=== PATIENT | male | born 1990 | race Caucasian/White ===

== ENCOUNTER 2024-07-29 21:01 | Observation (INO) | payer BC ==
[~2024-07-29] VITALS: Ht 182.9 cm; Wt 139.4 kg
[2024-07-29 21:43] LABS: BASOPHILS 0.3 % (0.2-1.2); EOSINOPHILS 1.5 % (0.8-7.0); HEMATOCRIT 44.7 % (40.1-51.0); HEMOGLOBIN 15.2 g/dL (13.7-17.5); LYMPHOCYTES 37.1 % (21.8-53.1); MCH 30.3 PG (25.7-32.2); NEUTROPHILS 52.7 % (34.0-67.9); PLATELET COUNT 201 K/uL (163-337); RBC 5.02 M/uL (4.63-6.08)
[2024-07-29] MEDS ORDERED: ondansetron HCL 4 MG/2 ML VIAL IV ONE (21:45)
[2024-07-29] MEDS ORDERED: KETOROLAC TROMETHAMINE 30 MG/ML VIAL IV ONE (21:45)
[2024-07-29 21:59] LABS: ALBUMIN 4.3 g/dL (3.4-5.0); ALBUMIN/GLOBULIN RATIO 1.23 (1.1-2.4); ANION GAP 13.8 (7-21); BILIRUBIN, TOTAL 0.3 mg/dL (0.2-1.0); BUN/CREATININE RATIO 13.6 (6.0-28.6); CALCIUM 8.8 mg/dL (8.5-10.1); CREATININE, SERUM 1.69 mg/dL (0.70-1.30); POTASSIUM 3.8 mmol/L (3.5-5.1); PROTEIN, TOTAL 7.8 g/dL (6.4-8.2)
[2024-07-29] MEDS ORDERED: MORPHINE SULFATE 4 MG/ML VIAL IV ONE (22:00)
[2024-07-29] MEDS ORDERED: FAMOTIDINE 20 MG/ 2 ML VIAL IV ONE (22:00)
[2024-07-29] MEDS ORDERED: LACTATED RINGER'S 1,000 ML IV ONE (22:00)
[2024-07-29] MEDS ORDERED: HYDROmorphone HCL 1 MG/ML SYR IV PRN ×2 (22:30→23:15)
[2024-07-29 22:44] LABS: BILIRUBIN, URINE NEGATIVE (negative); BLOOD/HGB, URINE NEGATIVE (Negative); KETONE, URINE TRACE (Negative); LEUK ESTERASE, URINE NEGATIVE (negative); NITRITE, URINE NEGATIVE (negative)
[2024-07-29] MEDS ORDERED: ondansetron HCL 4 MG/2 ML VIAL IV PRN (23:15)
[2024-07-29] MEDS ORDERED: LACTATED RINGER'S 1,000 ML IV SCH (23:15)
[2024-07-29] MEDS ORDERED: CEFAZOLIN SODIUM 1 GM/10 ML SYR IV ONE (23:15)
[2024-07-29] MEDS ORDERED: ACETAMINOPHEN 325 MG TAB PO PRN (23:15)
[2024-07-29 23:32] VITALS: BP 142/86
--- NOTE | 2024-07-29 23:40 | NUR ---
PT TO FLOOR WITH ED RN VIA WC. ALERT AND ORIENTED. ABLE TO TRANSFER SELF TO BED. BEDSIDE REPORT RECEIVED. WEIGHT AND VS OBTAINED. PT REPORTS ABD PAIN TOLERABLE 5/10. NO COMPLAINTS OF NAUSEA. DRUG ABUSE RESISTANCE EDUCATION OFFICER IN ROOM FOR ADMISSION.
[2024-07-30] VITALS (10 sets, daily range): BP systolic 120–144; BP diastolic 62–93
--- NOTE | 2024-07-30 00:22 | NUR ---
ADMISSION COMPLETE. PT DENIES PAIN OR NAUSEA AT THIS TIME. IVF INFUSING PER ORDER. DISCUSSED NPO STATUS. PT VERBALIZES UNDERSTANDING. ORAL CARE SUPPLIES PROVIDED. GALLBLADDER BOOKLET PROVIDED. TO STAY THE NIGHT. LINENS PROVIDED. PT ORIENTED TO ROOM AND NURSE CALL LIGHT. PT DENIES FURTHER QUESTIONS OR CONCERNS. CALL LIGHT IN REACH.
--- NOTE | 2024-07-30 02:14 | NUR ---
PT RESTING WITH EYES CLOSED. AWAKENS EASILY. DENIES PAIN OR NAUSEA. SPOT CHECK SpO2 96% ON RA. HR 60'S. RESTING ON COUCH. NO NEEDS. CALL LIGHT IN REACH.
--- NOTE | 2024-07-30 03:46 | NUR ---
PT IN BED RESTING WITH EYES CLOSED. RESPIRATIONS EVEN. CALL LIGHT IN REACH.
[2024-07-30 05:21] LABS: BASOPHILS 0.3 % (0.2-1.2); EOSINOPHILS 0.7 % (0.8-7.0); HEMATOCRIT 40.6 % (40.1-51.0); HEMOGLOBIN 13.6 g/dL (13.7-17.5); LYMPHOCYTES 21.4 % (21.8-53.1); MCH 30.4 PG (25.7-32.2); MCHC 33.5 g/dL (32.3-36.5); MCV 90.6 fL (79.0-92.2); MONOCYTES 8.6 % (5.3-12.2); NEUTROPHILS 68.6 % (34.0-67.9); PLATELET COUNT 152 K/uL (163-337); RBC 4.48 M/uL (4.63-6.08)
--- NOTE | 2024-07-30 05:35 | NUR ---
LAB IN FOR MORNING DRAW. PT UP TO BR TO VOID 350 ML CONCENTRATED URINE. BACK TO BED, YVES WELL. VS AND I&O OBTAINED, WNL. PT DENIES PAIN OR NAUSEA. PT REMAINS NPO. IVF INFUSING WNL. NO FURTHER NEEDS. CALL LIGHT IN REACH.
[2024-07-30 05:37] LABS: ALBUMIN 3.4 g/dL (3.4-5.0); ALBUMIN/GLOBULIN RATIO 1.1 (1.1-2.4); ANION GAP 11.3 (7-21); BILIRUBIN, TOTAL 0.3 mg/dL (0.2-1.0); BUN/CREATININE RATIO 15.58 (6.0-28.6); CALCIUM 8.3 mg/dL (8.5-10.1); CREATININE, SERUM 1.54 mg/dL (0.70-1.30); POTASSIUM 4.3 mmol/L (3.5-5.1); PROTEIN, TOTAL 6.5 g/dL (6.4-8.2)
[2024-07-30] MEDS ORDERED: CEFAZOLIN SODIUM 2 GM/20 ML SYR IV SCH (06:00)
[2024-07-30] MEDS ORDERED: CEFAZOLIN SODIUM 1 GM/10 ML SYR IV SCH (06:00)
[2024-07-30] MEDS ORDERED: LORazepam 2 MG/ML VIAL IV PRN ×3 (06:00→10:30)
--- NOTE | 2024-07-30 06:14 | NUR ---
PT TO NURSES STATION, REPORTS PT HAVING EXTREME ANXIETY AFTER LAB DRAW. MD NOTIFIED. NEW TELEPHONE ORDERS RECEIVED VERIFIED WITH READBACK METHOD. IN TO ADMIN PRN. EDUCATION PROVIDED. ORAL CARE SUPPLIES PROVIDED. NO FURTHER NEEDS.
--- NOTE | 2024-07-30 07:17 | NUR ---
REPORT FROM YVONNE SÁNCHEZ.
--- NOTE | 2024-07-30 08:06 | NUR ---
MED REC COMPLETE
--- NOTE | 2024-07-30 08:29 | NUR ---
MORNING ASSESSMENT IS COMPLETE. PATIENT IS ALERT AND ORIENTED, RA, ACTIVE BOWEL TONES. PATIENT REPORTS NO PAIN, NO NAUSEA. IVF INFUSING TO LEFT ARM. SCD'S ARE ON. PATIENT DENIES ANY NEEDS AT THIS TIME.
--- NOTE | 2024-07-30 08:42 | NUR ---
ALERT AND ORIENTED IN BED. DEMOGRAPHICS CONFIRMED. LIVES IN HOUSE. DRIVES AT BASELINE, SPOUSE CAN ASSIST WITH TRANSPORTATION. HAS CRUTCHES, NO OTHER DME. HE DOES NOT CURRENTLY USE THE CRUTCHES HE HAS AVAILABLE. DENIES ANY DIFFICULTY PAYING UTILTIES OR FOR FOOD OR MEDICATIONS. PLAN FOR DC TO HOME WHEN MEDICALLY STABLE. NO CM NEEDS AT THIS TIME.
[2024-07-30] MEDS ORDERED: FAMOTIDINE 20 MG/ 2 ML VIAL IV SCH ×3 (09:00→10:30)
--- NOTE | 2024-07-30 10:00 | NUR ---
PATIENT IS RESTING IN BED, DENIES NEEDS.
[2024-07-30] MEDS ORDERED: MORPHINE SULFATE 10 MG/ML VIAL IV PRN ×2 (10:15→10:30)
[2024-07-30] MEDS ORDERED: KETOROLAC TROMETHAMINE 30 MG/ML VIAL IV PRN ×2 (10:15→10:30)
[2024-07-30] MEDS ORDERED: ondansetron HCL 4 MG/2 ML VIAL IV PRN ×3 (10:15→16:45)
[2024-07-30] MEDS ORDERED: LACTATED RINGER'S 1,000 ML IV SCH ×2 (10:15→10:30)
--- NOTE | 2024-07-30 11:30 | NUR ---
SPIRITUAL CARE IN TO SEE PATIENT.
[2024-07-30] MEDS ORDERED: SODIUM CHLORIDE 0.9% 40 ML IV ONE (12:13)
[2024-07-30] MEDS ORDERED: iopamidoL 30 ML VIAL ONE (12:13)
--- NOTE | 2024-07-30 12:33 | NUR ---
PATIENT ALERT AND ORIENTED SITTING UP IN BED. CALL LIGHT WITHIN REACH. PATIENT DENIES ANY NEEDS OR CONCERNS AT THIS TIME.
[2024-07-30] MEDS ORDERED: MIDAZOLAM HCL 2 MG/2 ML VIAL ONE (12:59)
[2024-07-30] MEDS ORDERED: fentaNYL citrate 100 MCG/2 ML VIAL ONE (12:59)
--- NOTE | 2024-07-30 13:00 | NUR ---
PATIENT DID A SURGICAL WIPE DOWN. NEW GOWN AND SOCKS SCDS ON. NEW BED LINENS. PATIENT ALSO BRUSHED HIS TEETH AND WASHED HIS FACE.
--- NOTE | 2024-07-30 13:18 | NUR ---
PATIENT HAD SURGICAL WIPE DOWN. LR ON STRAIGHT TUBING, 1400 ANCEF IS TAPED TO IVF BAG. PATIENT GIVEN 1MG OF IV ATIVAN FOR ANXIETY. SPOUSE AND MOM ARE IN ROOM WITH PATIENT.
--- NOTE | 2024-07-30 13:36 | NUR ---
UR CLINICAL REVIEW: [facility] ENCOUNTER INACTIVE. PER KINESIOTHERAPIST MEETS OBS FOR ACUTE CALCULOUS CHOLECYSTITIS WITH NEED FOR SURGICAL PROCEDURE [facility]AN PPO OBS 07/29/24 @ 2369 ORDER MATCHES REG NO AUTH REQUIRED FOR OBS VISIT PER GUIDELINES DISCHARGE TO HOME POST SURGICAL PROCEDURE 07/31/24
[2024-07-30] MEDS ORDERED: ondansetron HCL 4 MG/2 ML VIAL ONE (14:00)
[2024-07-30] MEDS ORDERED: propofoL 200 MG/20 ML VIAL ONE (14:00)
[2024-07-30] MEDS ORDERED: ROCURONIUM BROMIDE 50 MG/5 ML SYR ONE (14:00)
[2024-07-30] MEDS ORDERED: LIDOCAINE HCL 2% 5 ML SDV ONE (14:00)
[2024-07-30] MEDS ORDERED: SUCCINYLCHOLINE IN 0.9% NACL 200 MG/10 ML SYRINGE ONE (14:00)
[2024-07-30] MEDS ORDERED: ACETAMINOPHEN 1,000 MG/100 ML VIAL ONE (14:00)
[2024-07-30] MEDS ORDERED: KETOROLAC TROMETHAMINE 30 MG/ML VIAL ONE (14:00)
--- NOTE | 2024-07-30 14:04 | NUR ---
PATIENT TO SURGERY WITH GONZALO CERDA.
--- NOTE | 2024-07-30 14:58 | NUR ---
REPORT GIVEN TO GONZALO CONNOLLY.
[2024-07-30] MEDS ORDERED: HYDROmorphone HCL 2 MG/ML VIAL ONE (15:06)
[2024-07-30] MEDS ORDERED: SEVOFLURANE 250 ML BTL INH ONE (15:18)
[2024-07-30] MEDS ORDERED: SUGAMMADEX SODIUM 200 MG/2 ML ML ONE (15:59)
[2024-07-30] MEDS ORDERED: MEPERIDINE HCL 25 MG/1 ML VIAL IV PRN (16:45)
[2024-07-30] MEDS ORDERED: NALOXONE HCL 0.4 MG SYR IV PRN (16:45)
[2024-07-30] MEDS ORDERED: PERCOCET 7.5-31 EACH PO (16:45)
[2024-07-30] MEDS ORDERED: TYLENOL EXTRA500 MG PO (16:45)
[2024-07-30] MEDS ORDERED: fentaNYL citrate 50 MCG/ML SDV IV PRN (16:45)
[2024-07-30] MEDS ORDERED: HYDROmorphone HCL 1 MG/ML SYR IV PRN (16:45)
[2024-07-30] MEDS ORDERED: MOTRIN IB200 MG PO (16:45)
[2024-07-30] MEDS ORDERED: MIDAZOLAM HCL 2 MG/2 ML VIAL IV PRN (16:45)
--- NOTE | 2024-07-30 17:16 | NUR ---
07/30/246 Shikha Sheldon PATIENT WAKES TO MY VOICE AND LIGHT TOUCH. ORAL AIRWAY IS REMOVED. PATIENT IS PULLING AT THE OXYGEN MASK. OXYGEN IS DISCONTINUED AT THIS TIME. PATIENT REPORTS "A LITTLE BIT" OF PAIN. PATIENT RETURNS TO RESTING QUIETLY, WITH HIS EYES CLOSED WHEN UNSTIMULATED.
[2024-07-30] MEDS ORDERED: OXYCODONE/APAP 7.5/325 TAB PO PRN (17:45)
[2024-07-30] MEDS ORDERED: ACETAMINOPHEN 500 MG TAB PO PRN (17:45)
[2024-07-30] MEDS ORDERED: IBUPROFEN 600 MG TAB PO PRN (17:45)
--- NOTE | 2024-07-30 17:58 | NUR ---
PT RECIEVED FROM FRIEND OF THE COURT. PT BROUGHT VIA BED, AND TRANSPOSRTED ON 1L NC. PT IS VERY DROUSY BUT RESPONDS TO VERBAL STIMULI, PT HAS NO PAIN OR NAUSEA AT THIS TIME WITH SPOUSE CURRENTLY IN ROOM. PT VITALS STABLE AT THIS TIME WITH CPOX IN PLACE AND 1L NC IN PLACE WELL, PT HAS 4 LAP SITES AT THIS TIME WITH SCANT DRAINAGE AROUNDS SITES. PT HAS CALL LIGHT IN REACH AT THIS TIME AND HAS NO CURRENT CONCERNS.
--- NOTE | 2024-07-30 19:35 | NUR ---
REPORT RECEIVED FROM DAY SHIFT RN. PT LYING IN BED ALERT AND ORIENTED, DROWSY. SpO2 94% ON RA. HR 70'S. DENIES NEEDS. FAMILY AT BEDSIDE. WHITE BOARD UPDATED. CALL LIGHT IN REACH.
--- NOTE | 2024-07-30 20:16 | NUR ---
POST OP VS OBTAINED, WNL. PT UP TO AMB X 3 LAPS AROUND WITH SBA. YVES WELL. BACK TO RECLINER. JELLO PROVIDED. FAMILY IN ROOM. NO FURTHER NEEDS.
--- NOTE | 2024-07-30 21:10 | NUR ---
CALL LIGHT ANSWERED, pt RATES PAIN 6/10 IN ABDOMEN. PO PAIN MEDICATION ADMINISTERED, CRACKERS PROVIDED. VSS. pt SITTING UP, ICE WATER REFILLED. IN ROOM. URINAL EMPTIED. CALL LIGHT IN REACH.
--- NOTE | 2024-07-30 21:33 | NUR ---
EVENING ASSESSMENT COMPLETE. SCHEDULED MEDS AMDIN PER EMAR. PT REPORTS PAIN IMPROVING AFTER PRN ADMIN. DENIES NAUSEA. BOWEL TONES ACTIVE. ABD SOFT. LAP SITES X 4 WITH STERI STRIPS INTACT. SMALL AMOUNT RED DRAINAGE NOTED. PT REPORTS FLATUS. CPOX IN PLACE. TO STAY THE NIGHT. PT DENIES QUESTIONS OR CONCERNS. CALL LIGHT IN REACH.
--- NOTE | 2024-07-30 23:24 | NUR ---
PT RESTING IN BED WITH EYES CLOSED. RESPIRATIONS EVEN. SpO2 94% ON RA.
--- NOTE | 2024-07-31 02:13 | NUR ---
PT AWAKE IN BED. REPORTS ABD PAIN 05/23. PRN FOR PAIN ADMIN PER EMAR. UP TO BR WITH MINIMAL ASSIST TO VOID. BACK TO BED, YVES WELL. VS AND I&O OBTAINED, WNL. PT DENIES NAUSEA. ABD ASSESSMENT UNCHANGED. PT DENIES FURTHER NEEDS. CALL LIGHT IN REACH.
[2024-07-31 02:25] VITALS: BP 136/72
[2024-07-31 02:27] VITALS: BP 136/72
--- NOTE | 2024-07-31 03:42 | NUR ---
PT RESTING IN BED WITH EYES CLOSED. RESPIRATIONS EVEN. CALL LIGHT IN REACH.
[2024-07-31 06:16] VITALS: BP 129/80
--- NOTE | 2024-07-31 06:30 | NUR ---
PT AWAKE IN BED. VS AND I&O OBTAINED. IV IN LEFT UPPER ARM NOT PATENT. IV ABX DUE. NOTIFIED. NEW TELEPHONE ORDERS RECEIVED VERIFIED WITH READBACK METHOD. IV DC'D WNL. TIP INTACT. WARM COMPRESS PROVIDED WELL ELEVATION. OK'D TO LEAVE IV OUT AND DC ABX. PT REPORTS ABD PAIN 05/23. PRN FOR PAIN ADMIN WITH CRACKERS. PT DENIES FURTHER NEEDS. ALL LIGHT IN REACH.
--- NOTE | 2024-07-31 07:20 | NUR ---
RECEIVED REPORT FROM ALEXIS SÁNCHEZ. PATIENT AMBULATING IN ROOM, AT BEDSIDE. PATIENT STATES NO CURRENT NEEDS. CALL LIGHT AT REACH.
--- NOTE | 2024-07-31 07:42 | NUR ---
PATIENT LAYING IN BED. PATIENT GOWN WAS CHANGED. PATIENTS CALL LIGHT IN REACH AND NO FURTHER NEEDS AT THIS TIME.
--- NOTE | 2024-07-31 08:21 | NUR ---
PATIENT SITTING UP IN BED EATING BREAKFAST, AT BEDSIDE. DC PACKET AND EDUCATION GIVEN, PATIENT AND VERBALIZED UNDERSTANDING AND STATE ALL QUESTIONS HAVE BEEN ANSWERED. PATIENT STATES NO NEEDS AT THIS TIME, CALL LIGHT AT REACH.
--- NOTE | 2024-07-31 08:50 | NUR ---
PT DRESSES SELF IN OWN CLOTHES, PT AT THE BEDSIDE. PT TOLERATES REGULAR DIET BREAKFAST W/O DIFFICULTY, AMBULATES AROUND UNIT INDEPENDENTLY. VSS. PT AMBULATES TO FRONT OF BUILDING.
[2024-07-31 08:51] VITALS: BP 139/78
[2024-07-31] MEDS ORDERED: FAMOTIDINE 20 MG TAB PO SCH (09:00)
--- NOTE | 2024-08-01 11:32 | HP ---
[facility] [address] [place], [place] [address] Signed ADMISSION DATE: 07/30/2024 REASON FOR ADMISSION: Symptomatic gallstones. HISTORY OF PRESENT ILLNESS: This 34-year-old white man presented to the emergency room at approximately 10 o'clock last night and evaluated thoroughly by Dr. Balbuena with complaints of mid epigastric and right upper abdominal pain radiating to the subscapular area. This occurred approximately an hour and a half prior to his evaluation by Dr. Balbuena. He had no fever, chills, but did have one episode of vomiting. The patient was identified as having gallstones on a gallbladder ultrasound in the past. Indeed, three years ago in emergency room evaluation in [place], [place]. The patient did some health improvements including dietary modification and so forth and has not generally been bothered by his documented gallstones but in recent times has had a few episodes of right subcostal and some subscapular pain. The patient admits that he has a "phobia" regarding medical care and that was a major reason he did not pursue further efforts at cholecystectomy. Evaluation in the emergency room included a chest x-ray, which was normal and a gallbladder ultrasound showing gallstones without pericholecystic fluid. Laboratory studies were essentially normal. White count was 11.71. Liver enzymes were normal including bilirubin was 0.3. Urinalysis was normal as well. He has been admitted for further evaluation and care on the basis of acute cholecystitis. He has been initiated with Zofran antibiotic initially and Ancef currently. The patient did not have much improvement significantly with morphine administered initially ultimately given Dilaudid with some benefit. The patient did have some bit of an anxiety episode early in the morning for which I treated with Ativan prior to seeing him, which did calm him down quite a bit. At present, he is feeling reasonably comfortable and he is accompanied by his . PAST MEDICAL HISTORY: Remarkable only for wisdom tooth extraction. He takes no medications chronically. His primary care provider is Ronnie Oleary. He currently does not have as much pain as when he first presented and has no nausea. Electronically Signed By: MIKHAIL BARLOW MD 08/01/24 1132 PATIENT NAME: BAILEY SAM HISTORY AND PHYSICAL DATE OF : 88 REPORT #: [id number] PHYSICIAN: MIKHAIL BARLOW MD PCP: RONNIE OLEARY PAC REPORT IS CONFIDENTIAL AND NOT TO BE RELEASED WITHOUT AUTHORIZATION [facility] [address] [place], [place] [address] Signed REVIEW OF SYSTEMS: He denies any shortness of breath or chest pain. He has had no dysphagia, dysuria. Denies any hematemesis or blood per rectum. SOCIAL HISTORY: The patient is . He is accompanied by his at this time. He has two children, 11 and 9 years of age. 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 They lives in [place], [place]. PHYSICAL EXAMINATION: GENERAL: Large white man who does not look systemically toxic at this time. VITAL SIGNS: On presentation, pulse of 73, blood pressure 161/86, temperature 98.3. NECK: Trachea is midline. He has a pérez. CHEST: Clear. HEART: Regular without murmur. ABDOMEN: Somewhat obese but soft. Palpation in the right subcostal and epigastric area reveals mild tenderness, but no mass. EXTREMITIES: Show no clubbing, cyanosis, or edema. LABORATORY DATA: Lab studies were as previously noted. Normal electrolytes except for creatinine elevated at 1.69. Review of his ultrasound shows at least one large gallstone with shadowing. I do not identify pericholecystic fluid. Gallbladder is somewhat distended. ASSESSMENT: The patient presented with acute calculous cholecystitis and his symptoms are improved with IV antibiotics, parental pain medication and bowel rest. I discussed with him and his the pathophysiology of biliary disease and recommendation of treatment to include cholecystectomy preferred by laparoscopic approach. The risk of bleeding, infection, bile duct injury, need for open surgery and other unforeseen complications was reviewed with him in detail. He understands. He would certainly appreciate proceeding with this today. We are mindful of his medical treatment, anxiety issues and Ativan is ordered and has been effective so far already. Mikhail Barlow MD JM/MODL Electronically Signed By: MIKHAIL BARLOW MD 08/01/24 1132 PATIENT NAME: BAILEY SAM HISTORY AND PHYSICAL DATE OF : [birth year] REPORT #: [id number] PHYSICIAN: MIKHAIL BARLOW MD PCP: RONNIE OLEARY PAC REPORT IS CONFIDENTIAL AND NOT TO BE RELEASED WITHOUT AUTHORIZATION [address] [address] Signed /[id number] cc: Dr. Mark Oleary PA-C Copies: ~ Electronically Signed By: MIKHAIL BARLOW MD 08/01/24 1132 PATIENT NAME: BAILEY SAM HISTORY AND PHYSICAL DATE OF : [birth year] REPORT #: [id number] PHYSICIAN: MIKHAIL BARLOW MD PCP: RONNIE OLEARY PAC REPORT IS CONFIDENTIAL AND NOT TO BE RELEASED WITHOUT AUTHORIZATION
--- NOTE | 2024-08-01 11:32 | OR ---
[facility] [address] [place], [place] [address] Signed DATE OF OPERATION: 07/30/2024 SURGEON: Mikhail Barlow MD PREOPERATIVE DIAGNOSES: 1. Acute calculous cholecystitis. 2. Obesity. POSTOPERATIVE DIAGNOSES: 1. Acute calculous cholecystitis. 2. Obesity. PROCEDURE: 1. Laparoscopic cholecystectomy with intraoperative cholangiogram (difficult). 2. Surgeon-directed fluoroscopy. ANESTHESIA: General endotracheal. Maurice Seamons, COATINGS INSPECTOR and local 10 mL of 0.25% Marcaine with epinephrine. INDICATION: This 34-year-old white man is long known to have gallstones undergoing gallbladder ultrasound through emergency room evaluation in [place], [place] more than three years ago. In general terms, he has had minimal symptoms over time in the past few weeks, increasing symptoms of right upper abdominal and epigastric and right subscapular pain have been noted. Yesterday, he had a particularly severe episode and presented to the emergency room was evaluated by Dr. Ghazala Rivera and found to have findings consistent with acute cholecystitis. A gallbladder ultrasound was performed which showed multiple gallstones, but not gallbladder thickening per se. Given his tenderness. He was considered to have acute calculous cholecystitis and he is admitted for further evaluation and care. He has been treated with antibiotics including Ancef and fluid resuscitation. He is now to undergo cholecystectomy preferred by laparoscopic approach. Risks of bleeding, infection, bile duct injury, need for open surgery and other unforeseen complications were reviewed in detail. He understands and wished to proceed. FINDINGS: The gallbladder was definitely edematous and inflamed and distended and firm. More so than I expected actually. The gallbladder itself had multiple large gallstones, some of them 2 cm in size. Intraoperative cholangiogram was normal. The liver was normal as were the surrounding tissues otherwise. He tolerated the procedure well. It was Electronically Signed By: MIKHAIL BARLOW MD 08/01/24 1132 PATIENT NAME: BAILEY SAM OPERATIVE REPORT DATE OF : [birth year] REPORT #: [id number] PHYSICIAN: MIKHAIL BARLOW MD PCP: RONNIE OLEARY PAC REPORT IS CONFIDENTIAL AND NOT TO BE RELEASED WITHOUT AUTHORIZATION [facility] [address] [place], [place] [address] Signed challenging on the basis of his edema and obesity, but it was accomplished safely. To my knowledge, all stones have been removed, though there was spillage of stones at the very end of the cholecystectomy requiring them to be gathered up manually. DESCRIPTION OF PROCEDURE: The patient was brought to the operating room, given a general endotracheal anesthetic. Sequential compression device stockings were placed. Preoperative antibiotic Ancef had been given. The abdomen was prepared with a chlorhexidine solution and draped sterilely. Notably, he did have a rash in the inferior abdominal wall pannus and the circumumbilical low-grade rash is the same type. It was not pustular or purulent. May represent psoriasis versus a tinea type infection. After satisfactory abdominal preparation with Hibiclens and sterile draping, an infraumbilical incision was made outside the area of inflammatory process. Using an open Rosita cannula technique, the abdomen was entered and pneumoperitoneum achieved to a level of 14 mmHg of carbon dioxide gas. Intra-abdominal inspection showed no sign of ascites or carcinomatosis. The fundus of the gallbladder was barely visible, but did show edema. The liver appeared reasonably normal. Three additional trocars were placed in usual configuration in the subxiphoid, right midclavicular, and right anterior axillary line. Gallbladder was elevated cephalad and marked edema and distention of the gallbladder noted. It was quite inflamed. The infundibulum was grasped and retracted laterally and using blunt electrocautery dissection, the triangle of Calot was dissected free. A lymph node was noted in the infundibulum, which was benign-appearing. With various maneuvers and sequential elevation of the gallbladder, the triangle of Calot was more fully dissected free ultimately identifying the cystic duct and cystic artery, which parallel to each other. With the critical view of safety, the cystic duct was more fully dissected free and from the artery. Ultimately, the artery was doubly clipped and divided. The critical view of safety assured that appropriate biliary structure was identified and the clip was applied across the gallbladder cystic duct junction. A transverse choledochotomy was made in the cystic duct and using an Blackmon type cholangiocatheter intraoperative cholangiography was then undertaken. Free flow of contrast was noted into the biliary tree under surgeon directed fluoroscopy. There was no sign of filling defect. The cystic duct was not excessively long. It was noted. Various angles were used to more fully define that, but ultimately it was clear that the cystic duct was not as lengthy as usual, but not directly opposed to the common hepatic duct itself. The catheter was removed. The cystic duct was triply clipped and divided and the gallbladder was then dissected free in a retrograde fashion using electrocautery. The gallbladder was partly intrahepatic in the apex and entry into the gallbladder allowed for spillage of some stones and debris. The gallbladder was ultimately excised completely, placed in an endobag as were some spilled stones and extracted through the infraumbilical port site. Reinspection of subhepatic Electronically Signed By: MIKHAIL BARLOW MD 08/01/24 1132 PATIENT NAME: BAILEY SAM OPERATIVE REPORT DATE OF : [birth year] REPORT #: [id number] PHYSICIAN: MIKHAIL BARLOW MD PCP: RONNIE OLEARY PAC REPORT IS CONFIDENTIAL AND NOT TO BE RELEASED WITHOUT AUTHORIZATION [facility] [address] [place], [place] [address] Signed space showed several small gallstones, all of which were gathered. Irrigation was undertaken showing no sign of bile leak, bleeding or other problem. Once it was clear, there were no retained stones. No bile leak or bleeding. The subhepatic space was insufflated with powdered hemostatic agent. The trocars were removed under direct visualization showing no sign of bleeding. The fascial incision was reapproximated with interrupted 0 Vicryl suture. All wounds were copiously irrigated with saline solution and 10 mL of 0.25% Marcaine with epinephrine was injected locally. The skin was closed with interrupted 3-0 Vicryl. Steri-Strips were applied. Inspection of the gallbladder on the back table showed no sign of neoplasm of mucosa, but multiple large multifaceted gallstones. The patient was taken to recovery room after extubation in good condition having suffered no complications. Sponge, needle, and instrument counts reported as correct x3. MD GEOVANNA Epstein/RICARDO /[id number] cc: Ronnie Oleary PA-C Ghazala Rivera MD [facility] Copies: ~ Electronically Signed By: MIKHAIL BARLOW MD 08/01/24 1132 PATIENT NAME: BAILEY SAM OPERATIVE REPORT DATE OF : [birth year] REPORT #: [id number] PHYSICIAN: MIKHAIL BARLOW MD PCP: RONNIE OLEARY PAC REPORT IS CONFIDENTIAL AND NOT TO BE RELEASED WITHOUT AUTHORIZATION
--- NOTE | 2024-08-02 10:44 | PATH ---
[facility] [place] [facility] [address] [facility] [place], [place] [address] Signed SPECIMEN(S): A GALLBLADDER AND GALLSTONES SPECIMEN SOURCE: A. GALLBLADDER AND GALLSTONES CLINICAL HISTORY: Cholecystitis, cholelithiasis FINAL PATHOLOGIC DIAGNOSIS: Gallbladder, cholecystectomy - Morphologic features of chronic cholecystitis with cholelithiasis. NA MICROSCOPIC EXAMINATION: Histologic sections of all submitted blocks are examined by light microscopy. These findings, together with the gross examination, support the pathologic diagnosis. GROSS DESCRIPTION: The specimen, labeled and designated "Rudder, gallbladder and gallstones," is received in formalin and consists of Specimen: Previously opened gallbladder. Dimensions: 7.8 x 3.2 x 2.0 cm. Serosa: Stigler-morales to violaceous and smooth. Cystic Duct: Unobstructed, margin inked black and shaved. Calculi: Multiple yellow-brown multifaceted and fragmented calculi (0.1-1.7 cm in greatest dimension, and 6.5 x 5.0 x 1.7 cm in aggregate). Mucosa: Red-brown to green-morales and velvety. Wall thickness: 0.1-0.5 cm. Lymph node: One red-brown possible pericystic lymph node (0.9 x 0.8 x 0.5 cm). The tissue is inked blue, and the specimen is submitted in toto.. Additional: None. [employer]der [employer]er sections are submitted in (A1). VB (under the direct supervision of a pathologist) The Gross Description was prepared using a voice recognition system. The report was reviewed for accuracy; however, sound-alike word errors, addition and/or deletions may occur. If there is any question about this report, please contact Client Services. ADDITIONAL NOTES: PATIENT NAME: BAILEY SAM PATHOLOGY DATE OF : [birth year] REPORT #: [id number] PHYSICIAN: ETHEL GALVIN PCP: RONNIE OLEARY PAC REPORT IS CONFIDENTIAL AND NOT TO BE RELEASED WITHOUT AUTHORIZATION [facility] [place] [facility] [address] [place], [place] [address] Signed Immunohistochemical and/or in situ hybridization studies if performed in this case included appropriate positive controls that reacted as expected. This test was developed and its performance characteristics determined by [facility]. It has not been cleared or approved by the U.S. Food and Drug Administration. The FDA has determined that such clearance or approval is not necessary. This test is used for clinical purposes. It should not be regarded as investigational or for research. [facility] is certified under the Clinical Laboratory Improvement Amendments of 1988 (CLIA) as qualified to perform high complexity clinical laboratory testing. PERFORMING LABORATORY: Technical component was performed by [facility], [address] [place], [place] [address] (CLIA# [id number]). Professional interpretation was performed by [facility] [employer] [facility], [address] [place] [address] (CLIA#: [id number]). Diagnostician: Stephanie Garcia MD Pathologist Electronically Signed 08/02/2024 Copies: ~ PATIENT NAME: BAILEY SAM PATHOLOGY DATE OF : [birth year] REPORT #: [id number] PHYSICIAN: ETHEL GALVIN PCP: RONNIE OLEARY PAC REPORT IS CONFIDENTIAL AND NOT TO BE RELEASED WITHOUT AUTHORIZATION
== END 2024-07-31 08:50 | disposition home or self-care (01) ==
LOC: ED 21:01 → MS 23:13 → ED 23:13 → MS 07-30 10:11
PROVIDERS: Internal Medicine; ADMIT Surgery; ATTEND Surgery
PROC: 0FT44ZZ Resection of Gallbladder, Percutaneous Endoscopic Approach (ICD-10-PCS; principal; 2024-07-30 17:30)
DX: K80.12 Calculus of gallbladder with acute and chronic cholecystitis without obstruction (principal); E66.9 Obesity, unspecified
CPT/HCPCS: 00790; 36415; 71045; 74300; 76705; 80053; 81003; 83690; 85025; 96375; A9270; G0378; J0131; J0330; J0690; J1171; J1885; J2003; J2060; J2250; J2270; J2405; J2704; J3010; J3490; J7121; Q9967